=== PATIENT | male | born 1955 | race Caucasian/White ===

== ENCOUNTER 2020-11-20 11:46 | Outpatient (CLI) | payer MEDICARE, SELFPAY ==
--- NOTE | 2020-11-20 12:48 | ECG_ITS ---
Measurements Intervals [place] Rate: 86 P: 51 MO: 193 QRS: -21 QRSD: 102 T: 6 QT: 374 QTc: 449 Interpretive Statements SINUS RHYTHM DELAYED PRECORDIAL R/S TRANSITION BORDERLINE T WAVE ABNORMALITY- INFERIOR LEADS BASELINE ARTIFACT- I, II, AVR, AVL, AVF BORDERLINE ECG Electronically Signed On 11-20-2020 13:05:28 CDT by Rashi Whitfield D.O.
[2020-11-20 13:20] LABS: Anion Gap 7 mmol/L (8-16); Blood Urea Nitrogen 18 mg/dL (9-20); Calcium 9.4 mg/dL (8.4-10.2); Carbon Dioxide 29 mmol/L (22-30); Chloride 102 mmol/L (98-107); Estimated Glomerular Filt Rate > 60; Glucose 98 mg/dL (65-110); Potassium 3.7 mmol/L (3.4-5.0); Sodium 138 mmol/L (137-145)
== END 2020-11-20 11:47 | disposition home or self-care (01) ==
LOC: ANHSURGERY 11:52
PROVIDERS: Anesthesiology; PCP Internal Medicine; Visit Provider Orthopaedic Surgery
DX: Z01.818 Encounter for other preprocedural examination (principal); I10 Essential (primary) hypertension; Z79.899 Other long term (current) drug therapy
CPT/HCPCS: 36415; 80048; 93005

== ENCOUNTER 2020-12-04 01:46 | Day surgery (SDC) | payer MEDICARE, SELFPAY ==
[2020-11-20 12:15] VITALS: BP 114/76; PULSE 100; RESP 20; TEMP 36.6; O2SAT 99; BMI 42.0
--- NOTE | 2020-12-02 17:21 | PM.IMHP ---
H&P: HPI History of Present Illness Date/Time: 12/02/20 17:21 Chief Complaint: Right foot deformity and pain Narrative: 65-year-old gentleman with cavovarus foot deformity bilaterally, right greater than left. Pain with daily activity and weight-bearing. Unrelieved with custom inserts and ankle bracing. Presents for operative treatment. Review of Systems Constitutional: Constitutional: Denies fever(s) Eyes: Eyes: Denies blurry vision ENT: Reports Normal hearing present Cardiovascular: Cardiovascular: Denies chest pain and Denies dyspnea Respiratory: Respiratory: Denies dyspnea and Denies wheezing Gastrointestinal: Gastrointestinal: Denies abdominal pain Genitourinary: Genitourinary: Denies urinary urgency Musculoskeletal: Musculoskeletal: Reports as per HPI and Reports numbness ( Both feet) Integumentary/Breasts: Skin/Breast: Denies changing lesions and Denies sores Neurologic: Reports Normal hearing present, Denies behavioral changes, Denies confusion, Reports numbness ( bilateral feet, lateral ankle) and Denies convulsions Psychiatric: Psychiatric: Denies behavioral changes, Denies confusion and Denies hallucinations Endocrine: Endocrine: Denies heat intolerance Hematologic/Lymphatic: Hematologic/Lymphatic: Denies easy bleeding Allergic/Immunologic: Allergic/Immunologic: Denies wheezing PMFSH Past Medical History Medical History Acquired cavovarus deformity of both feet Back pain Bilateral swelling of feet and ankles Constipation Cough Dry skin Foot pain, right Hoarseness Insomnia Lack or loss of sexual desire Leg pain Redness SOB (shortness of breath) Swelling Weight gain Family History Family History Other Cerebrovascular accident Family history of arthritis Hypertension Social History Social History Smoking status: Former smoker Tobacco type: cigarettes Additional smoking assessment comments: STATES SMOKED 3/4PK/DAY/AGE 17 QUIT 2007 Alcohol intake: current Drinks per week: 10 Substance use: never Substance use type: does not use Spiritual care concerns: No Meds Home Medications and Allergies Home Medications Medication Instructions Recorded Confirmed Type amlodipine 5 mg tablet 5 mg PO QAM 09/22/20 11/20/20 History atorvastatin 20 mg tablet 20 mg PO HS 09/22/20 11/20/20 History clopidogrel 75 mg tablet 75 mg PO DAILY 09/22/20 11/20/20 History furosemide 40 mg tablet 40 mg PO QAM 09/22/20 11/20/20 History isosorbide mononitrate 60 mg 60 mg PO QAM 09/22/20 11/20/20 History tablet,extended release 24 hr levothyroxine 75 mcg capsule 75 mcg PO QAM 09/22/20 11/20/20 History losartan 100 mg tablet 100 mg PO QAM 09/22/20 11/20/20 History coenzyme Q10 100 mg PO BID 11/20/20 11/20/20 History Allergies Allergy/AdvReac Type Severity Reaction Status Date / Time ticagrelor Allergy Intermediate Itching Verified 11/20/20 12:09 latex AdvReac SKIN Verified 11/20/20 12:41 IRRITATION Exam Const: General: healthy appearing; No in distress or confusion Orientation/consciousness: oriented to person, oriented to place, oriented to time and No confusion HENMT: Head: normal to inspection, normocephalic and atraumatic Eyes: Conjunctivae: conjunctivae normal Sclera: sclerae normal Neck: Neck: supple and nontender Resp: Effort & Inspection: normal respiratory effort and no audible wheezes Cardio: Rate: regular rate Rhythm: regular rhythm Skin: General skin exam: no rashes or lesions noted Neuro: General: oriented to person, oriented to place, oriented to time and No confusion Extrem: Right upper extremity: normal to inspection Left upper extremity: normal to inspection Right lower extremity: normal capillary refill, ankle Details: normal to inspection and normal ROM (Dorsiflexion -5 , pl
--- NOTE | 2020-12-03 13:51 | WPDANESEPPF ---
Anes - Initial Pre Proc Eval Procedure: Operation Date: 12/04/20 10:00 Proposed Procedures p Right Calcaneal Osteotomy, Metatarsal Osteotomy, Peroneal Tenodesis, Plantar Fascia Release, Lateral Ankle Ligament Reconstruction - Henrry Delacruz MD Date/Time: 12/03/20 13:51 Surgeon: Henrry Delacruz MD Pre Op Diagnosis: cavovarus right foot deformity Patient Data Age: 65 Gender: M Height: 1.85 m Weight: 144.5 kg Last Vital Signs Temp 36.6 C 11/20/20 12:15 Pulse 100 11/20/20 12:15 Resp 20 11/20/20 12:15 BP 114/76 11/20/20 12:15 Pulse Ox 99 11/20/20 12:15 Allergies Allergy/AdvReac Type Severity Reaction Status Date / Time ticagrelor Allergy Intermediate Itching Verified 12/04/20 08:23 latex AdvReac SKIN Verified 12/04/20 08:23 IRRITATION Home Medications Medication Instructions Recorded Confirmed Type amlodipine 5 mg tablet 5 mg PO [facility] 09/22/20 11/20/20 History atorvastatin 20 mg tablet 20 mg PO HS 09/22/20 11/20/20 History clopidogrel 75 mg tablet 75 mg PO DAILY 09/22/20 11/20/20 History furosemide 40 mg tablet 40 mg PO [facility] 09/22/20 11/20/20 History isosorbide mononitrate 60 mg 60 mg PO [facility] 09/22/20 11/20/20 History tablet,extended release 24 hr levothyroxine 75 mcg capsule 75 mcg PO [facility] 09/22/20 11/20/20 History losartan 100 mg tablet 100 mg PO [facility] 09/22/20 11/20/20 History coenzyme Q10 100 mg PO BID 11/20/20 11/20/20 History ECG: Date of Service: 11/20/20 Procedure(s): CA 12 lead EKG Accession Number(s): [id number] cc: ~ Measurements Intervals [place] Rate: 86 P: 51 [place]: 193 QRS: -21 QRSD: 102 T: 6 QT: 374 QTc: 449 Interpretive Statements SINUS RHYTHM DELAYED PRECORDIAL R/S TRANSITION BORDERLINE T WAVE ABNORMALITY- INFERIOR LEADS BASELINE ARTIFACT- I, II, AVR, AVL, AVF BORDERLINE ECG Electronically Signed On 11-20-2020 13:05:28 CDT by Rashi Whitfield D.O. Patient hx anesthesia problems: none Family hx anesthesia problems: none PMFSH Past Medical History Medical History (Updated 12/03/20 @ 13:53 by Gentry Radford MD) Acquired cavovarus deformity of both feet Arthritis Back pain Bilateral swelling of feet and ankles CAD (coronary artery disease) Constipation Cough Dry skin Foot pain, right Hoarseness HTN (hypertension) Hx of myocardial infarction Hypercholesterolemia Hypothyroidism Insomnia Lack or loss of sexual desire Leg pain Morbid obesity with BMI of 40.0-44.9, adult BRAIN on CPAP Redness SOB (shortness of breath) Swelling Weight gain Surgical History Surgical History (Updated 12/03/20 @ 13:53 by Gentry Radford MD) History of coronary artery stent placement Family History Family History Other Cerebrovascular accident Family history of arthritis Hypertension Social History Social History Smoking status: Light tobacco smoker Tobacco type: cigarettes Additional smoking assessment comments: STATES SMOKED 3/4PK/DAY/AGE 17 QUIT 2007 Alcohol intake: current Drinks per week: 10 Substance use: never Substance use type: does not use Living arrangements: with family Spiritual care concerns: No Anes - Eval Final PreProcedure Day of Procedure 12/03/20 13:51 Patient weight: obese Heart: regular rate and rhythm Lungs: clear to auscultation and normal air movement Airway: Mallampati scale class II Neurological: alert and oriented Last oral intake: >/= 8 hours ASA classification: III Emergent: no Anesthetic plan: proceed Anesthesia type and monitoring: general LMA and ETT Informed Consent: The patient's anesthe
[2020-12-04] VITALS (9 sets, daily range): BP systolic 122–149; BP diastolic 71–92; PULSE 62–75; RESP 15–20; TEMP 36.2–36.9; O2SAT 90–97
--- NOTE | ~2020-12-04 | XR_ITS ---
EXAMINATION: XR surgery orthopedic EXAM DATE: 12/04/2020 13:06 INDICATION: Right Calcaneal/1st Metatarsal Osteotomy TECHNIQUE: Fluoroscopy used during right foot orthopedic surgery performed by Dr. Henrry Delacruz MD. Radiologist was not present for the imaging or procedure. Total fluoroscopic time of 19 seconds . The DAP for this procedure was 0.024 mGym2. A total of 5 images sent to PACS from the exam. FINDINGS: Images demonstrate calcaneal osteotomy with 2 lag screws bridging the osteotomy site. Ther e is also 1st metatarsal osteotomy with staple-like orthopedic fixation device bridging this site. So me skin johann over the lateral aspect of the ankle. There is chronic appearing Ny fracture. Ther e may also be old lateral malleolar fracture. Correlate with procedure note. IMPRESSION: Fluoroscopy used during right foot surgery. Reviewed, dictated and finalized at location A.
--- NOTE | 2020-12-04 06:51 | WPDHPUPDATE1 ---
History and Physical Update Update Date/Time: 12/04/20 06:51 History and Physical has been reviewed, including an updated exam of the patient. There are NO changes in the patient's condition. Risks, benefits, and alternatives have been discussed and questions answered. Patient agrees to proceed with procedure.
[2020-12-04] MEDS: ACETAMINOPHEN 500 MG TABLET 1000 MG PO (08:18)
[2020-12-04] MEDS: LACTATED RINGERS 1,000 ML 30 ML IV CONT ×2 (08:20→13:21)
[2020-12-04] MEDS: KETOROLAC 15 MG/ML VIAL (*BKC) IV PUSH (08:26)
--- NOTE | 2020-12-04 08:47 | SUR.PREOP ---
PT HAS PREVIOUSLY RECIEVED INCENTIVE TEACHING, DENIES NEED FOR CRUTCH TRAINING.
--- NOTE | 2020-12-04 10:22 | WPDANESPNB ---
Anes - Peripheral Nerve Block Date/Time: 12/04/20 10:22 I have discussed with the patient/family/POA the placement of a peripheral nerve block for post-operative pain management, including associated risks, benefits, complications, and side effects. Alternative methods of post-operative analgesia were detailed. Questions were solicited and answers provided to the satisfaction of the patient/family/POA. Time-Out: A pre-procedural Time-Out was completed immediately before starting the procedure and confirmed: Patient Identification, Site, Procedure, Patient Position and the Availability of Requisite Equipment. Clinical Indications: Acute post-operative pain management requested by the operative surgeon. Nerve Block Insertion Note Anes-nerve block: posterior fossa sciatic (20cc) right and adductor canal (10cc) right Patient position: supine Skin prep: chlorhexidine Needle: 22 gauge, stimulating, insulated echogenic needle. Needle length: 80 mm Technique: ultrasound (in plane) Injectate: bupivacaine 0.25% with epi 5 mcg/ml Observations: tolerated well Complications: none Procedure start time:: 1010 Procedure end time:: 1020
[2020-12-04] MEDS: ceFAZolin 3 GM/D5W 100 ML 100 ML IVPB (10:28)
--- NOTE | 2020-12-04 13:33 | W.PM.PROC2 ---
Procedure Note - Detailed Date of Procedure 12/04/20 Pre-op Diagnosis cavovarus right foot deformity Post-op Diagnosis same Procedure Performed Right calcaneal osteotomy, 1st metatarsal osteotomy, peroneal tenodesis, lateral ligament reconstruction, secondary, plantar fascia release. 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 Stress fractures noted in the metatarsals. Pain with weight-bearing. Unrelieved with orthotics and bracing. Presents now for operative treatment. Description of Procedure Patient identified in the preoperative holding area. Operative extremity marked. Patient received intravenous antibiotics. Informed consent given and patient was brought to the operating room positioned supine on the operative room table. Preoperative regional nerve block performed by the anesthesia team followed by general anesthesia. Time-out was performed confirming the patient, site of the surgery and the plan. Right lower extremity was then prepped and draped usual sterile surgical fashion using a ChloraPrep skin solution. Foot and ankle exsanguinated and a thigh tourniquet inflated to 250 mmHg. We addressed the calcaneus 1st. Oblique incision made over the lateral aspect of the calcaneal tuberosity. The sural nerve was identified and retracted. Subperiosteal dissection from the lateral side of the calcaneus. Fluoroscopy used to help guide the osteotomy. Sagittal saw used to make an osteotomy from lateral to medial. This was completed with the osteotome. Lateral closing wedge was then taken approximately 8 mm in width. The osteotomy was closed down and fixation was achieved with 6.7 mm cannulated screws x2. Image intensification confirmed placement of the hardware and alignment of the calcaneus. Wound thoroughly irrigated antibiotic solution to the periosteum was closed with 2 Vicryl interrupted suture. Incision made in the peroneal tendon sheath and the peroneal tendons were identified. There is extensive hypertrophy and scarring of the peroneus longus. A tenodesis was performed of the longus to the brevis tendon using 2. FiberWire suture. The peroneus longus was then released distal to the tenodesis. Wounds thoroughly irrigated antibiotic solution and the subcutaneous tissue closed with 3 Monocryl interrupted suture. Skin approximated with johann. Oblique incision from the distal fibula over the sinus tarsi with a 15 blade knife. Hemostasis controlled electrocautery. Fascia released over the sinus tarsi. Degenerative changes of the lateral ankle ligaments noted. Reconstruction performed using the Arthrex internal brace. 4.75 mm drill placed and the lateral talar neck. Swivel lock anchor with the suture tape placed. 3.5 mm drill hole placed at the anterior distal fibula and with the ankle mortise reduced the suture tape was repaired to the distal fibula with the 3.5 mm swivel lock anchor. From there the suture tape was taken distally to the calcaneus and with the ankle mortise in neutral the suture tape was secured to the calcaneus with a 4.75 mm swivel lock anchor. Image intensification confirmed well-maintained alignment of the ankle mortise and placement of the suture drill holes. Wound thoroughly irrigated antibiotic solution the remaining anterior talofibular and calcaneal fibular ligaments were repaired with 0 Vicryl interrupted suture. Fascia repaired with 2 Vicryl interrupted suture and the skin repaired with 3-0 Monocryl subcuticular interrupted suture and johann. Medial aspect of the foot addressed. Oblique incision made over the medial aspect of the plantar fascia. Neurovascular elements were retracted. The medial aspect of the fascia was identified and a complete release of the plantar fascia was then performed from medial to lateral. Wound thoroughly irrigated subcutaneous tissue closed with 3 000 Monocryl Inter
== END 2020-12-04 15:37 | disposition home or self-care (01) ==
PROVIDERS: PCP Internal Medicine; Visit Provider Orthopaedic Surgery
PROC: (CPT 28750; principal; 2020-12-04 10:00)
DX: Q66.11 Congenital talipes calcaneovarus, right foot (principal); Q66.12 Congenital talipes calcaneovarus, left foot; I25.10 Atherosclerotic heart disease of native coronary artery without angina pectoris; E66.01 Morbid (severe) obesity due to excess calories; Z68.41 Body mass index [BMI] 40.0-44.9, adult; Z79.899 Other long term (current) drug therapy; G89.18 Other acute postprocedural pain
CPT/HCPCS: 28306; 28300; 28008; 27659; 27698; 64445; 36415; 80048; 87086; 93005; A9270; J0690; J1100; J1885; J2250; J2370; J2405; J2704; J2710; J3010; J7120

== ENCOUNTER 2020-12-31 12:42 | Emergency (ER) | payer MEDICARE, SELFPAY ==
[2020-12-31] VITALS (13 sets, daily range): BP systolic 126–157; BP diastolic 84–91; PULSE 79–91; RESP 13–22; TEMP 37; O2SAT 94–97
--- NOTE | ~2020-12-31 | XR_ITS ---
EXAMINATION: XR chest 2V EXAM DATE: 12/31/2020 14:12 INDICATION: Shortness of breath, lower extremity swelling. TECHNIQUE: Frontal and lateral projections of the chest obtained and reviewed. There is no prior corbin dy for comparison. FINDINGS: Right basilar granuloma. The lungs are otherwise clear. There are no pleural effusions. The cardiomediastinal silhouette is within normal limits accounting for AP technique. There is no pn eumothorax suspected. The bones and soft tissues are unremarkable. IMPRESSION: No acute cardiopulmonary findings. Reviewed, dictated and finalized at location B.
--- NOTE | ~2020-12-31 | US_ITS ---
EXAMINATION: US venous doppler [facility] EXAM DATE: 12/31/2020 14:44 INDICATION: Left leg swelling. TECHNIQUE: Multiple grayscale, color flow and Doppler images of the left lower extremity deep venous system were obtained and reviewed. There is no prior study for comparison. FINDINGS: The left common femoral, femoral and profunda veins demonstrate normal color flow, respirat ory variation, augmentation and compressibility. Compressibility, color flow confirmed within the le ft popliteal, posterior tibial, peroneal, and greater saphenous veins. IMPRESSION: 1. No left lower extremity deep venous thrombosis. Reviewed, dictated and finalized at location B.
--- NOTE | 2020-12-31 13:13 | PC.NURSE ---
pt reports that he is supposed to be taking 1 1/2 water pills a day and has only been taking 1 pill a day cause he heard they can mess up his kidneys. pt presents with 4+ pitting edema noted to left lower leg. pt c/o increased sob with exertion.
--- NOTE | 2020-12-31 13:48 | ECG_ITS ---
Measurements Intervals [place] Rate: 84 P: 64 MI: 188 QRS: -8 QRSD: 107 T: 31 QT: 375 QTc: 444 Interpretive Statements SINUS RHYTHM NORMAL ECG Electronically Signed On 12-31-2020 14:17:47 CDT by Rashi Whitfield D.O.
[2020-12-31 14:00] LABS: Basophils Absolute Auto 0.1 K/mm3 (0.0-0.1); Basophils Percent Auto 1.2 % (0.2-1.2); Eosinophils Absolute Auto 0.3 K/mm3 (0-0.3); Eosinophils Percent Auto 5.1 % (0-4.4); Hematocrit 36.9 % (42.0-52.0); Hemoglobin 12.5 g/dL (14.0-18.0); Immature Granulocyte Absolute 0.02 K/mm3 (0.00-0.031); Immature Granulocyte Percent A 0.3 % (0-0.5); Lymphocytes Absolute Auto 1.38 K/mm3 (0.9-3.2); Lymphocytes Percent Auto 20.5 % (18.3-44.2); Mean Corpuscular HGB Conc 33.9 g/dl (32-36); Mean Corpuscular Hemoglobin 33.5 pg (26-34); Mean Corpuscular Volume 98.9 fl (80-100); Mean Platelet Volume 9.6 fl (7.4-10.4); Monocytes Absolute Auto 0.5 K/mm3 (0.1-0.6); Monocytes Percent Auto 7.9 % (2.6-8.5); Neutrophils Absolute Auto 4.4 K/mm3 (1.3-6.7); Platelet Count Result 245 k/mm3 (150-375); Red Blood Count 3.73 M/mm3 (4.6-6.20); White Blood Count 6.7 K/mm3 (4.5-10.0)
[2020-12-31 14:22] LABS: Anion Gap 10 mmol/L (8-16); Blood Urea Nitrogen 19 mg/dL (9-20); Calcium 9.2 mg/dL (8.4-10.2); Carbon Dioxide 28 mmol/L (22-30); Chloride 101 mmol/L (98-107); Estimated CRCL calculation 109 ml/min; Estimated Glomerular Filt Rate > 60; Glucose 105 mg/dL (65-110); Sodium 139 mmol/L (137-145)
[2020-12-31 14:30] LABS: NT Pro B Type Natriuretic Pept 68 pg/mL (5-100); Troponin I < 0.012 ng/mL (0.000-0.034)
[2020-12-31 14:33] LABS: INR 0.9
--- NOTE | 2020-12-31 16:01 | ED.EXTPRO ---
HPI - Extremity Problem General Chief complaint: Extremity Problem,Nontraumatic Stated complaint: leg/foot swelling Time Seen by Provider: 12/31/20 14:06 Source: patient and RN notes reviewed Mode of arrival: ambulatory Limitations: no limitations History of Present Illness HPI Narrative: This is a 65 year old male with history of morbid obesity, Hypertension who presents for evaluation left foot and leg swelling. Patient reports history of intermittent bilateral leg swelling and he takes Lasix daily. He noticed yesterday his left foot and leg appeared more swollen than usual. He states he had a right foot reconstruction perform [address] Delacruz and he had a cast placed yesterday. His clinic note states patient had bilateral leg swelling. Patient states today he took 2 dose of his Lasix and his swelling has improved. He has been sleeping in a recliner over the past few weeks, but he states he has been keeping his legs elevated. He denies chest pain, dizziness or shortness of breath. He admits to significant weight gain for months. Related Data Home Medications Medication Instructions Recorded Confirmed amlodipine 5 mg tablet 5 mg PO QAM 09/22/20 12/30/20 atorvastatin 20 mg tablet 20 mg PO HS 09/22/20 12/30/20 clopidogrel 75 mg tablet 75 mg PO DAILY 09/22/20 12/30/20 furosemide 40 mg tablet 60 mg PO QAM 09/22/20 12/30/20 isosorbide mononitrate 60 mg 60 mg PO QAM 09/22/20 12/30/20 tablet,extended release 24 hr levothyroxine 75 mcg capsule 75 mcg PO QAM 09/22/20 12/30/20 losartan 100 mg tablet 100 mg PO QAM 09/22/20 12/30/20 coenzyme Q10 100 mg PO BID 11/20/20 12/30/20 Allergies Allergy/AdvReac Type Severity Reaction Status Date / Time ticagrelor Allergy Intermediate Itching Verified 12/31/20 13:46 latex AdvReac SKIN Verified 12/31/20 13:46 IRRITATION Review of Systems Review of Systems: All systems reviewed & are unremarkable except as noted in HPI and below PMFSH Past Medical History Medical History Acquired cavovarus deformity of both feet Arthritis Back pain Bilateral swelling of feet and ankles CAD (coronary artery disease) Constipation Cough Dry skin Encounter for postoperative care Foot pain, right Hoarseness HTN (hypertension) Hx of myocardial infarction Hypercholesterolemia Hypothyroidism Insomnia Lack or loss of sexual desire Leg pain Morbid obesity with BMI of 40.0-44.9, adult BRAIN on CPAP Redness SOB (shortness of breath) Swelling Weight gain Surgical History Surgical History History of coronary artery stent placement Family History Family History Other Cerebrovascular accident Family history of arthritis Hypertension Social History Social History Tobacco type: cigarettes Additional smoking assessment comments: STATES SMOKED 3/4PK/DAY/AGE 17 QUIT 2007 Alcohol intake: current Drinks per week: 10 Substance use: never Substance use type: does not use Spiritual care concerns: No Exam Const: General: no acute distress and alert Orientation/consciousness: patient oriented x3 Eyes: Pupils: Equal, round and reactive pupils present EOM: EOMs intact bilaterally Chest: Chest palpation & inspection: normal inspection of the chest Resp: Effort & Inspection: normal respiratory effort and no retractions Auscultation: clear to auscultation bilaterally Cardio: Rate: regular rate Rhythm: regular rhythm Heart sounds: no murmurs GI: GI Palp: Yes Soft to palpation, No Tenderness to palpation present (GI) and No Guarding due to palpation present (GI) Auscultation: normal bowel sounds Neuro: General: patient oriented x3, moves all extremities and CN's II-XI intact bilaterally Extrem: General: edema bilateral (3+ pitting, left pedal
== END 2020-12-31 17:15 | disposition home or self-care (01) ==
PROVIDERS: Emergency Provider General Practice; PCP Internal Medicine
DX: R60.0 Localized edema (principal); I25.10 Atherosclerotic heart disease of native coronary artery without angina pectoris; I10 Essential (primary) hypertension; I25.2 Old myocardial infarction; E78.00 Pure hypercholesterolemia, unspecified; E03.9 Hypothyroidism, unspecified; E66.01 Morbid (severe) obesity due to excess calories; Z68.41 Body mass index [BMI] 40.0-44.9, adult; G47.33 Obstructive sleep apnea (adult) (pediatric); M19.90 Unspecified osteoarthritis, unspecified site; Z95.5 Presence of coronary angioplasty implant and graft; Z87.891 Personal history of nicotine dependence
CPT/HCPCS: 36415; 71046; 80048; 83880; 84484; 85025; 85610; 85730; 93005; 93971; 99284

== ENCOUNTER 2021-04-06 01:33 | Day surgery (SDC) | payer MEDICARE, SELFPAY ==
--- NOTE | 2021-03-27 10:46 | PC.NURSE ---
Report to the Outpatient Waiting Room, entrance under the green pavilion located off [facility], at time _0600 on date _04/06/21 . OR Time: __729 . - You and your visitor will be asked a series of questions to screen for COVID 19 for your protection. - A mask is required within the hospital. - Only one visitor is allowed at this time. Patient visitors will be guided where to wait when not with patient. Preoperative COVID Testing Requirements: No COVID Test needed if: (proof is required; if not received patient will have Rapid Test prior to entry) - Patient has received COVID Vaccine at least 14 days prior to procedure date or - Patient has positive COVID test result within last 90 days of surgery date. COVID Test needed if above criteria is not met If not COVID vaccinated a COVID test must be conducted within 72 hours of surgery and patient is asked to isolate self from time of testing until procedure. You will go to the [facility] for your COVID testing. The [facility] site is located at the corner of [address] [facility]. You will only be called if COVID results are positive and your surgeon may reschedule your elective surgery date. Patients may have clear liquids (water, carbonated beverages, clear teas, apple juice) until 3 hours prior to surgery with a maximum of 20 ounces. - No food from midnight until time of surgery - Infants may have breast milk until 4 hours before surgery, infant formula 6 hours prior to surgery. - Children will be allowed to drink immediately following surgery. If applicable, please bring a bottle or sippy cup to assist with drinking. Juice, water, soda, and popsicles are readily available. For infants on formula, please bring formula the day of surgery. Pacifiers are allowed. Take the following medications with a SIP of water the morning of surgery: __AMLODIPINE,ISISORBIDE,LEVOTHYROXINE Medications to discontinue per physician __ASPIRIN AND PLAVIX PER DR BRUNO AND ALL VITAMINS AND SUPPLEMENTS 3 DAYS PRE OP Date to take last dose____04/02/21 Please no make-up, nail macedonian, hairspray, perfume, deodorant, or body powder the day of surgery. No jewelry (including any body piercings) or valuables the day of surgery, leave them at home. Please take a shower or bath the night before, or the morning of, surgery with an antibacterial soap. Wear comfortable, loose fitting clothing. Children are encouraged to wear pajamas. - Jewelry must be removed prior to entering the operating room. Rings and piercings that are not removed may be cut off. - The hospital will not accept responsibility for valuables. - Please leave all valuables, including medications, at home the day of surgery. If you are going home after surgery, a licensed pile driver engineer must drive you home. - NO public transportation without another adult. - We recommend that an adult stay with you for 24 hours following discharge. - We also recommend that you do not drive, make important decision, drink alcoholic beverages, or take any drugs that were not prescribed by your health care provider for at least 24 hours after your discharge time. For Pediatric surgeries, we recommend two adults accompany the child home (only one inside the building at this time). Follow any additional instructions given to you from your surgeon. VERBAL instructions given to ___PATIENT AND SPOUSE and asked if any additional questions and then verbalized understanding. Patient advised to call surgeon office or pre surgery nurse liaison [phone] if any additional questions.
[2021-03-27 11:09] VITALS: BP 122/84; PULSE 76; RESP 16; TEMP 36.7; O2SAT 97
[2021-03-27 11:17] VITALS: BMI 43.2
--- NOTE | 2021-03-31 13:02 | PM.IMHP ---
H&P: HPI History of Present Illness Date/Time: 03/31/21 13:02 Chief Complaint: Left foot pain and deformity Narrative: 65-year-old gentleman with bilateral cavovarus foot deformity. Four months status post reconstruction on the right side. Increased pain and deformity on the left side secondary to full pressure after surgery for the right foot. Unrelieved with brace and fracture boot immobilization. Patient has done well on the right side And presents for same on the left. Review of Systems Constitutional: Constitutional: Denies fever(s) Eyes: Eyes: Denies blurry vision ENT: Reports Normal hearing present Cardiovascular: Cardiovascular: Denies chest pain and Denies dyspnea Respiratory: Respiratory: Denies dyspnea and Denies wheezing Gastrointestinal: Gastrointestinal: Denies abdominal pain Genitourinary: Genitourinary: Denies urinary urgency Musculoskeletal: Musculoskeletal: Reports as per HPI and Reports numbness ( Both feet) Integumentary/Breasts: Skin/Breast: Denies changing lesions and Denies sores Neurologic: Reports Normal hearing present, Denies behavioral changes, Denies confusion, Reports numbness ( bilateral feet, lateral ankle) and Denies convulsions Psychiatric: Psychiatric: Denies behavioral changes, Denies confusion and Denies hallucinations Endocrine: Endocrine: Denies heat intolerance Hematologic/Lymphatic: Hematologic/Lymphatic: Denies easy bleeding Allergic/Immunologic: Allergic/Immunologic: Denies wheezing PMF Past Medical History Medical History (Updated 03/31/21 @ 13:05 by Henrry Delacruz MD) Acquired cavovarus deformity of both feet Acquired cavovarus deformity of left foot Acquired left hindfoot varus Arthritis Back pain Bilateral swelling of feet and ankles CAD (coronary artery disease) Constipation Cough Dry skin Edema of lower extremity Encounter for postoperative care Foot pain, right Hoarseness HTN (hypertension) Hx of myocardial infarction Hypercholesterolemia Hypothyroidism Insomnia Lack or loss of sexual desire Leg pain Morbid obesity with BMI of 40.0-44.9, adult BRAIN on CPAP Peroneal tendinitis of left lower leg Posterior tibial tendinitis of left lower extremity Redness SOB (shortness of breath) Swelling Weight gain Surgical History Surgical History History of coronary artery stent placement Family History Family History Other Cerebrovascular accident Family history of arthritis Hypertension Social History Social History Smoking packs per day: 0.5 Smoking cigarettes per day: 10.0 Years smoked: 25 Smoking pack-years: 12.50 Smoking status: Former smoker Tobacco type: cigarettes Smoking end date: 04/11/07 Additional smoking assessment comments: STATES SMOKED 3/4PK/DAY/AGE 17 QUIT 2007 Alcohol intake: current Drinks per week: 6 Substance use: never Substance use type: does not use Spiritual care concerns: No Meds Home Medications and Allergies Home Medications Medication Instructions Recorded Confirmed Type amlodipine 5 mg tablet 5 mg PO QAM 09/22/20 03/27/21 History atorvastatin 20 mg tablet 20 mg PO HS 09/22/20 03/27/21 History clopidogrel 75 mg tablet 75 mg PO DAILY 09/22/20 03/27/21 History isosorbide mononitrate 60 mg 60 mg PO QA 09/22/20 03/27/21 History tablet,extended release 24 hr levothyroxine 75 mcg capsule 100 mcg PO QAM 09/22/20 03/27/21 History losartan 100 mg tablet 100 mg PO QAM 09/22/20 03/27/21 History coenzyme Q10 100 mg PO BID 11/20/20 03/27/21 History aspirin [Adult Low Dose Aspirin] 81 mg PO HS 03/27/21 03/27/21 History furosemide 40 mg PO DAILY 03/27/21 03/27/21 History omega-3 fatty acids [Fish Oil] 1,000 mg PO DAILY 03/27/21 03/27/21 History zinc 50 mg PO DAILY 03/27/21 03/27/21 History Allergies Allergy/AdvRea
[2021-04-06] VITALS (7 sets, daily range): BP systolic 131–154; BP diastolic 78–94; PULSE 68–80; RESP 12–16; TEMP 36.2–36.3; O2SAT 97–100
--- NOTE | ~2021-04-06 | XR_ITS ---
EXAMINATION: XR surgery orthopedic EXAM DATE: 04/06/2021 09:27 INDICATION: Lt Foot/Ankle Corrective Surg . TECHNIQUE: Fluoroscopy used during left foot surgery performed by Dr. Henrry Delacruz MD. Radiolo gist was not present for the imaging or procedure. Total fluoroscopic time of 12 seconds. The DAP f or this procedure was 0.016 mGym2. A total of 6 images sent to PACS from the exam. FINDINGS: Images demonstrate calcaneal osteotomy, surgical fixation with lag screws and staple-like orthopedic device. Also 1st metatarsal base osteotomy and orthopedic staple-like device. Some johann over the ankle laterally. Correlate with procedure note. IMPRESSION: Fluoroscopy used during left foot surgery. Reviewed, dictated and finalized at location B. TACO
[2021-04-06] MEDS: LACTATED RINGERS 1,000 ML 30 ML IV CONT (06:45)
[2021-04-06] MEDS: ACETAMINOPHEN 500 MG TABLET 1000 MG PO (06:52)
[2021-04-06] MEDS: KETOROLAC 15 MG/ML VIAL (*BKC) IV PUSH (06:58)
--- NOTE | 2021-04-06 07:02 | WPDHPUPDATE1 ---
History and Physical Update Update Date/Time: 04/06/21 07:02 History and Physical has been reviewed, including an updated exam of the patient. There are NO changes in the patient's condition. Risks, benefits, and alternatives have been discussed and questions answered. Patient agrees to proceed with procedure.
--- NOTE | 2021-04-06 07:05 | WPDANESEPPF ---
Anes - Initial Pre Proc Eval Procedure: Operation Date: 04/06/21 07:30 Proposed Procedures p Left Calcaneal First Metatarsal Osteotomies, Peroneal and Tibial Tenodesis, Plantar Fascia Release, - Henrry Delacruz MD s Possible Lateral Ankle Ligament Reconstruction - Henrry Delacruz MD Date/Time: 04/06/21 07:05 Surgeon: Henrry Delacruz MD Pre Op Diagnosis: left cavovarus foot deformity Patient Data Age: 65 Gender: M Height: 1.84 m Weight: 146.6 kg Last Vital Signs Temp 36.7 C 03/27/21 11:09 Pulse 76 03/27/21 11:09 Resp 16 03/27/21 11:09 BP 122/84 03/27/21 11:09 Pulse Ox 97 03/27/21 11:09 Allergies Allergy/AdvReac Type Severity Reaction Status Date / Time ticagrelor Allergy Intermediate Itching/YENNIFER Verified 03/27/21 10:21 H latex AdvReac SKIN Verified 03/27/21 10:20 IRRITATION Home Medications Medication Instructions Recorded Confirmed Type amlodipine 5 mg tablet 5 mg PO QAM 09/22/20 03/27/21 History atorvastatin 20 mg tablet 20 mg PO HS 09/22/20 03/27/21 History clopidogrel 75 mg tablet 75 mg PO DAILY 09/22/20 03/27/21 History isosorbide mononitrate 60 mg 60 mg PO QAM 09/22/20 03/27/21 History tablet,extended release 24 hr levothyroxine 75 mcg capsule 100 mcg PO QAM 09/22/20 03/27/21 History losartan 100 mg tablet 100 mg PO QAM 09/22/20 03/27/21 History coenzyme Q10 100 mg PO BID 11/20/20 03/27/21 History aspirin [Adult Low Dose Aspirin] 81 mg PO HS 03/27/21 03/27/21 History furosemide 40 mg PO DAILY 03/27/21 03/27/21 History omega-3 fatty acids [Fish Oil] 1,000 mg PO DAILY 03/27/21 03/27/21 History zinc 50 mg PO DAILY 03/27/21 03/27/21 History Patient hx anesthesia problems: none Family hx anesthesia problems: none Results Review: All pre-operative results and documents have been reviewed as part of the pre-operative evaluation. [facility] Past Medical History Medical History Acquired cavovarus deformity of both feet Acquired cavovarus deformity of left foot Acquired left hindfoot varus Arthritis Back pain Bilateral swelling of feet and ankles CAD (coronary artery disease) Constipation Cough Dry skin Edema of lower extremity Encounter for postoperative care Foot pain, right Hoarseness HTN (hypertension) Hx of myocardial infarction Hypercholesterolemia Hypothyroidism Insomnia Lack or loss of sexual desire Leg pain Morbid obesity with BMI of 40.0-44.9, adult BRAIN on CPAP Peroneal tendinitis of left lower leg Posterior tibial tendinitis of left lower extremity Redness SOB (shortness of breath) Swelling Weight gain Surgical History Surgical History History of coronary artery stent placement Family History Family History Other Cerebrovascular accident Family history of arthritis Hypertension Social History Social History Smoking packs per day: 0.5 Smoking cigarettes per day: 10.0 Years smoked: 25 Smoking pack-years: 12.50 Smoking status: Former smoker Tobacco type: cigarettes Smoking end date: 04/11/07 Additional smoking assessment comments: STATES SMOKED 3/4PK/DAY/AGE 17 QUIT 2007 Alcohol intake: current Drinks per week: 6 Substance use: never Substance use type: does not use Living arrangements: with family Spiritual care concerns: No Anes - Eval Final PreProcedure Day of Procedure 04/06/21 07:05 Patient weight: morbidly obese Heart: regular rate and rhythm Lungs: decreased breath sounds Airway: Mallampati scale class III Neurological: alert and oriented Last oral intake: >/= 8 hours ASA classification: III Emergent: no Anesthetic plan: proceed Anesthesia type and monitoring: general LMA and standard monitoring Results Review: All pre-operative results and documents have been r
--- NOTE | 2021-04-06 07:18 | WPDANESPNB ---
Anes - Peripheral Nerve Block Date/Time: 04/06/21 07:18 I have discussed with the patient/family/POA the placement of a peripheral nerve block for post-operative pain management, including associated risks, benefits, complications, and side effects. Alternative methods of post-operative analgesia were detailed. Questions were solicited and answers provided to the satisfaction of the patient/family/POA. Time-Out: A pre-procedural Time-Out was completed immediately before starting the procedure and confirmed: Patient Identification, Site, Procedure, Patient Position and the Availability of Requisite Equipment. Clinical Indications: Acute post-operative pain management requested by the operative surgeon. Nerve Block Insertion Note Anes-nerve block: posterior fossa sciatic left and other (Saphenous left) Patient position: supine Skin prep: chlorhexidine Needle: 22 gauge, stimulating, insulated echogenic needle. Needle length: 120 mm Technique: nerve stimulation lost at (mA) Technique comment: mid 2mg fent 100mcg Injectate: bupivacaine 0.5% with epi 5 mcg/ml (20/10ml) and dexamethasone (mg) (4) Observations: tolerated well Complications: none Procedure start time:: 709 Procedure end time:: 716
[2021-04-06] MEDS: ceFAZolin 3 GM/D5W 100 ML 100 ML IVPB (07:28)
--- NOTE | 2021-04-06 08:08 | SUR.PREOP ---
PT PLAN TO USE KNEE SCOOTER POST PROCEDURE WITH PREV SURGERY ON RT FOOT/ANKLE. NO CRUTCH TEACHING NEEDED.
--- NOTE | 2021-04-06 09:58 | W.PM.PROC2 ---
Procedure Note - Detailed Date of Procedure 04/06/21 Pre-op Diagnosis left cavovarus foot deformity Post-op Diagnosis same Procedure Performed Left calcaneal and 1st metatarsal osteotomy, peroneal tenodesis, plantar fascia release, posterior tibial tenolysis. 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 Patient has undergone reconstruction on the right side. He presents now for the left side. Description of Procedure Patient identified in the preoperative holding area. Operative extremity marked. Patient received intravenous antibiotics. Informed consent given and patient was brought to the operating room positioned supine on the operative room table. Preoperative regional nerve block performed by the anesthesia team followed by general anesthesia. Time-out was performed confirming the patient, site of the surgery and the plan. Left lower extremity was then prepped and draped usual sterile surgical fashion using a ChloraPrep skin solution. Foot and ankle exsanguinated and a thigh tourniquet inflated to 250 mmHg. We addressed the calcaneus 1st. Oblique incision made over the lateral aspect of the calcaneal tuberosity. The sural nerve was identified and retracted. Subperiosteal dissection from the lateral side of the calcaneus. Fluoroscopy used to help guide the osteotomy. Sagittal saw used to make an osteotomy from lateral to medial. This was completed with the osteotome. Lateral closing wedge was then taken approximately 8 mm in width. The osteotomy was closed down and fixation was achieved with 6.5 mm cannulated screws x2. Secondary fixation achieved with a Nitinol staple, 18 mm by 18 mm. Image intensification confirmed placement of the hardware and alignment of the calcaneus. Wound thoroughly irrigated antibiotic solution to the periosteum was closed with 2 Vicryl interrupted suture. Incision made in the peroneal tendon sheath and the peroneal tendons were identified. There is extensive hypertrophy and scarring of the peroneus longus. A tenodesis was performed of the longus to the brevis tendon using 2. FiberWire suture. The peroneus longus was then released distal to the tenodesis. Wounds thoroughly irrigated antibiotic solution and the subcutaneous tissue closed with 3 Monocryl interrupted suture. Skin approximated with johann. Medial aspect of the foot addressed. Oblique incision made over the medial aspect of the plantar fascia. Neurovascular elements were retracted. The medial aspect of the fascia was identified and a complete release of the plantar fascia was then performed from medial to lateral. Wound thoroughly irrigated subcutaneous tissue closed with 000 Monocryl interrupted suture and skin repair was johann. Longitudinal incision made at the base of the 1st metatarsal over the dorsum with a 15 blade knife. Hemostasis controlled electrocautery. Neurovascular elements retracted. Base of the 1st metatarsal was exposed and a closing dorsal wedge osteotomy was performed dorsum plantar. Approximately 6 mm of wedge was taken. The osteotomy was closed down and fixation achieved with the Arthrex 13 mm staple. Hemostasis controlled electrocautery. Wounds on the dorsum of the foot were irrigated closed with 3 0 Monocryl interrupted suture for the subcutaneous tissue and johann for the skin. Longitudinal incision then made over the posterior tibial tendon on the medial aspect of the tibia proximal to the ankle with a 15 blade knife. Hemostasis controlled electrocautery. Neuro Georgie neurovascular elements protected. The posterior tibial tendon sheath was then incised in line with skin incision. Posterior tibial tendon identified and released at the tendinous portion. The muscular portion was left in place for a insitu lengthening. Wound thoroughly irrigated and the sheath closed with
== END 2021-04-06 12:10 | disposition home or self-care (01) ==
PROVIDERS: PCP Internal Medicine; Visit Provider Orthopaedic Surgery
PROC: (CPT 28750; principal; 2021-04-06 07:30)
DX: M21.6X2 Other acquired deformities of left foot (principal); M76.72 Peroneal tendinitis, left leg; M76.822 Posterior tibial tendinitis, left leg; M21.172 Varus deformity, not elsewhere classified, left ankle; I25.10 Atherosclerotic heart disease of native coronary artery without angina pectoris; I10 Essential (primary) hypertension; I25.2 Old myocardial infarction; E78.5 Hyperlipidemia, unspecified; E03.9 Hypothyroidism, unspecified; G47.33 Obstructive sleep apnea (adult) (pediatric); E66.01 Morbid (severe) obesity due to excess calories; Z68.41 Body mass index [BMI] 40.0-44.9, adult; Z95.5 Presence of coronary angioplasty implant and graft; Z87.891 Personal history of nicotine dependence; Z79.02 Long term (current) use of antithrombotics/antiplatelets; Z79.82 Long term (current) use of aspirin
CPT/HCPCS: 28306; 28008; 28300; 27680; 27691; A9270; J0690; J1100; J1885; J2250; J2405; J2704; J3010; J7120

== ENCOUNTER → 2022-07-10 07:40 | Outpatient (CLI) | payer MEDICARE, SELFPAY ==
--- NOTE | ~2022-07-10 | MR_ITS ---
EXAMINATION: MR lumbar spine wo con DATE: 07/10/2022 08:29 INDICATION: Chronic low back pain. Bilateral leg and foot numbness. Degenerative disc disease. TECHNIQUE: Magnetic resonance imaging (MRI) of the lumbar spine was performed without intravenous con trast. COMPARISON: Lumbar spine radiographs 06/30/2022 FINDINGS: There is 10 degrees levoscoliosis of lumbar spine. There is 3 mm retrolisthesis of L1 on L2 , L2 on L3, L3 on L4, L4 on L5, and L5 on S1. There is mild chronic anterior wedging of T11-L1 verteb ral bodies. There is mildly decreased disc height at L1-L2, moderately decreased disc height at L2-L3 , mildly decreased disc height at L3-L4, and severely decreased disc height at L4-L5 and L5-S1 with e ndplate remodeling. There is ligamentum flavum hypertrophy at the disc levels from L1-L2 through L4-L 5. Epidural lipomatosis is noted. The distal spinal cord signal intensity is normal. The conus medull padmini is at L2. The following disc levels are specifically discussed: L1-L2: The disc is bulging. There is severe right and mild left facet joint osteoarthritis. There is mild bilateral neural foraminal stenosis. There is mild central canal stenosis. L2-L3: The disc is bulging and has an annular fissure. There is severe right and moderate left facet joint osteoarthritis. There is moderate right and mild left neural foraminal stenosis. There is moder ate central canal stenosis. L3-L4: The disc is bulging and has an annular fissure. There is severe bilateral facet joint osteoart hritis. There is mild bilateral neural foraminal stenosis. There is moderate central canal stenosis. L4-L5: The disc is bulging and has an annular fissure. There is moderate right and severe left facet joint osteoarthritis. There is moderate bilateral neural foraminal stenosis. There is mild central ca nal stenosis. There is moderate stenosis of left lateral recess. L5-S1: The disc is bulging and has an annular fissure. There is severe bilateral facet joint osteoart hritis. There is severe bilateral neural foraminal stenosis. There is mild central canal stenosis. IMPRESSION: 1. Severe lumbar spondylosis. 2. Lumbar levoscoliosis. Reviewed, dictated and finalized at location A.
== END ==
PROVIDERS: PCP Physician Assistant Medical; Visit Provider Physician Assistant Medical
DX: M51.37 Other intervertebral disc degeneration, lumbosacral region (principal); R20.2 Paresthesia of skin; M19.90 Unspecified osteoarthritis, unspecified site; M47.896 Other spondylosis, lumbar region
CPT/HCPCS: 72148

== ENCOUNTER 2022-08-19 08:58 | Outpatient (CLI) | payer MEDICARE, SELFPAY ==
--- NOTE | 2022-08-19 15:00 | NEURO_ITS ---
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 MTDD
--- NOTE | 2022-08-19 15:00 | NEURO_ITS ---
IMPRESSION: Patient reports a history of numbness in both feet. # Nerve conduction study is suggestive of sensorimotor polyneuropathy with chronic neurogenic changes noted in bilateral extensor digitorum brevis, right gastrocnemius, and left tibialis anterior which likely indicates axonal involvement. . # Clinical correlation recommended. Nerve Conduction Studies Anti Sensory Summary Table Stim Site NR Peak (ms) P-T Amp (?V) Site1 Site2 Delta-P (ms) Dist (cm) Zane (m/s) Left Sup Fibular Anti Sensory (Ant Lat Mall) 14 cm 4.9 4.7 14 cm Ant Lat Mall 4.9 16.0 33 Right Sup Fibular Anti Sensory (Ant Lat Mall) 14 cm NR 14 cm Ant Lat Mall 16.0 Left Sural Anti Sensory (Lat Mall) Calf 5.8 21.4 Calf Lat Mall 5.8 16.0 28 Right Sural Anti Sensory (Lat Mall) Calf 5.6 8.5 Calf Lat Mall 5.6 16.0 29 Motor Summary Table Stim Site NR Onset (ms) O-P Amp (mV) Site1 Site2 Delta-0 (ms) Dist (cm) Zane (m/s) Left Peroneal Motor (Vastus Med) Ankle NR Popit Ankle 0.0 Popit NR Right Peroneal Motor (Vastus Med) Ankle NR Popit Ankle 0.0 Popit NR B Fib NR Left Tibial Motor (Abd Rutherford Brev) Ankle NR Knee Ankle 0.0 Knee 0.9 0.8 Right Tibial Motor (Abd Rutherford Brev) Ankle 5.9 2.0 Knee Ankle 45.0 Knee NR F Wave Studies NR F-Lat (ms) L-R F-Lat (ms) Left Peroneal (Mrkrs) (EDB) NR Right Peroneal (Mrkrs) (EDB) 61.99 Left Tibial (Mrkrs) (Abd Hallucis) NR Right Tibial (Mrkrs) (Abd Hallucis) 61.71 EMG Side Muscle Nerve Root Ins Act Fibs Amp Dur Recrt Comment Right AntTibialis Dp Br Fibular L4-5 Nml Nml Nml Nml Nml Right Gastroc Tibial S1-2 Nml Nml Nml Nml Reduced Right Fibularis Long Sup Br Fibular L5-S1 Nml Nml Nml Nml Nml Right Flex Dig Long Tibial L5-S2 Nml Nml Nml Nml Nml Right Ext Dig Brev Dp Br Fibular L5, S1 Nml Nml Incr Nml Reduced Left AntTibialis Dp Br Fibular L4-5 Nml Nml Nml Nml Reduced Left Gastroc Tibial S1-2 Nml Nml Nml Nml Nml Left Fibularis Long Sup Br Fibular L5-S1 Nml Nml Nml Nml Nml Left Flex Dig Long Tibial L5-S2 Nml Nml Nml Nml Nml Left Ext Dig Brev Dp Br Fibular L5, S1 Nml Nml Incr Nml Reduced MTDD
== END 2022-08-19 08:59 | disposition home or self-care (01) ==
LOC: ANHNEURO 08:59
PROVIDERS: PCP Physician Assistant Medical; Visit Provider Physician Assistant Medical
DX: R20.2 Paresthesia of skin (principal)
CPT/HCPCS: 95886; 95910

== ENCOUNTER 2022-09-20 11:00 | Outpatient (RCR) | payer MEDICARE, SELFPAY ==
--- NOTE | 2022-07-21 14:15 | PTOPEVAL1 ---
Assessment and note entered by Shannon Vincent DPT Evaluation Information Assessment Status Evaluation Subjective Information Pt reports LBP and numbness into his legs all the way into his toes. States that his feet are numb and painful. Has been going on for over a year and getting worse over the past few weeks. Highest pain 9/10 and lowest 5/10. Pain increases with walking longer distances (requires cart for grocery store) and navigating stairs. Cannot do reciprocal pattern on stairs. Difficulty bending over and sometimes painful. Pt is retired. Can sit for awhile, like to drive, but will be stiff after. RTMD on 07/28/22. Has had x-rays and MRI's done which showed stenosis/spondylosis. Reported Pain Level Pain Score 5: Self Report Assessment PT Clinical Summary The patient is presenting to skilled therapy with progressing LBP and radicular symptoms. He presents with decreased LE strength and flexibility, decreased core strength, and signs of neural tension which are contributing to his pain and difficulty with activities like prolonged walking and stairs. He will highly benefit from therapy to address these impairments and safely reduce pain and dysfunction. Plan of Care Interventions Electrical Stimulation,Gait Training,Hot Pack/Cold Pack,Manual Therapy,Mechanical Traction,Neuro Re- education,Patient/Caregiver Education,Therapeutic Activities,Therapeutic Exercise,Self-Care/Home Management,Ultrasound PT Services Indicated Yes Treatment Frequency and 2 times a week for 4 weeks Duration These treatments will address the objective and functional deficits as defined above. The patient will be advanced safely and appropriately in order for the patient to progress towards his/her prior level of function. Additional exercises will be introduced and as well as a comprehensive home exercise program upon discharge, if needed, ?to ensure carryover of functional gains achieved in the clinic. This treatment plan has been reviewed and agreement upon by the patient.
--- NOTE | 2022-08-18 15:42 | PTOPPROG ---
Assessment and note entered by Aimee Samuels, PT Assessment Status Progress Report Diagnosis spinal stenosis, Oth. intervertebral disc degeneration, parathesia of skin Subjective Information Pt reports feet are numb all the time. Always feels like has a pair of socks on . Pain goes into feet w/ standing too long. Still using a cart at grocery store. Still doing stairs one step at a time but feels this is more related to his knees . Cam bend but is not pain free. Reports since starting therapy doesn't hurt as bad , can walk long and a little long standing than previously. Pt reports 20% improvement overall. Nerve conduction study tomorrow. Has not been to pain management yet. Neurosurgery consult in October Pt does report feeling a lot better . Assessment PT Clinical Summary Pt has attended therapy consistently for paraesthesia, disc degeneration, and spinal stenosis. Pt reports feeling a lot better . Evaluation demo's improved ability to activate core musculature as well as increased hip and LE flexibility decreasing stress on lumbar spine. Reports he feels he is able to do more with less pain overall as well. Increased time spent discussing further referral options vs continuation of therapy which pt has decided to continue at this time as he has yet to plateau in his progress. Thus pt would benefit from continued therapy at this time. to improve strength, flexibility, and core strength. Plan of Care Interventions Electrical Stimulation,Gait Training,Hot Pack/Cold Pack,Manual Therapy,Mechanical Traction,Neuro Re- education,Patient/Caregiver Educati,Therapeutic Activities,Therapeutic Exercise,Self-Care/Home Management,Ultrasound PT Services Indicated Yes Treatment Frequency and 2x weekly x 4 weeks Duration These treatments will address the objective and functional deficits as defined above. The patient will be advanced safely and appropriately in order for the patient to progress towards his/her prior level of function. Additional exercises will be introduced and as well as a comprehensive home exercise program upon discharge, if needed, ?to ensure carryover of functional gains achieved in the clinic. This treatment plan has been reviewed and agreement upon by the patient.
--- NOTE | 2022-09-20 16:21 | PTOPPROG ---
Assessment and note entered by Aimee Samuels, PT Assessment Status Progress Diagnosis spinal stenosis, Oth. intervertebral disc degeneration, parathesia of skin Therapy diagnosis low back pain, weakness Subjective Information Pt reports feet are numb all the time. Always feels like has a pair of socks on (continued) Pain goes into feet w/ standing too long. Still using a cart at grocery store. - helps a lot versus when not using the cart Still doing stairs one step at a time but feels this is more related to his knees- cont Can bend biut is not pain free. - cont Reports since starting therapy doesn't hurt as bad , can walk long and a little long standing than previously. Pt reports 20% improvement overall. Neurosurgery consult in October Pt does report feeling a lot better . Reeeval 09/20/22: Reports is able to stand little longer. Just returned from vacation and notes pain was better. Notes was better when was on vacation , was more active like riding bike, swimming, walking around more. 30% improved overall Assessment PT Clinical Summary Pt reports he does feel he is improving, but not where he would like to be yet. Reports has noted increased ability to stand and perform activities, has shown in previous sessions centralization of symptoms. Today reports a little less pain after Traction. Traction less then full pressure due to fitting issues. Was also advised in home traction in pool setting for home traction. Pt cont to demo weakness as noted above, continued pain, and reduction of pain with traction. Thus will benefit from therapy for traction, updating of home program and continued strengthening as well as education related to issues and mobility. Plan of Care Interventions Electrical Stimulation,Hot Pack/Cold Pack,Manual Therapy,Mechanical Traction,Neuro Re-education, Patient/Caregiver Educati,Therapeutic Activities, Therapeutic Exercise,Self-Care/Home Management PT Services Indicated Yes Treatment Frequency and 2x weekly x 4 weeks Duration These treatments will address the objective and functional deficits as define
== END 2022-10-22 11:42 | disposition home or self-care (01) ==
LOC: ANHHIPT 11:00
PROVIDERS: PCP Physician Assistant Medical; Visit Provider Physician Assistant Medical
DX: M48.00 Spinal stenosis, site unspecified (principal); M51.37 Other intervertebral disc degeneration, lumbosacral region; R20.2 Paresthesia of skin
CPT/HCPCS: 97012; 97014; 97110; 97112; 97140; 97161; G0283

== ENCOUNTER 2022-10-22 11:52 | Outpatient (RCR) | payer MEDICARE, SELFPAY | END 2022-10-22 11:53 | disposition home or self-care (01) | LOC: ANHHIPT 11:52 | PROVIDERS: PCP Physician Assistant Medical; Visit Provider Physician Assistant Medical | DX: M48.00 Spinal stenosis, site unspecified (principal); M51.37 Other intervertebral disc degeneration, lumbosacral region; R20.2 Paresthesia of skin | CPT/HCPCS: 99199 ==

== ENCOUNTER 2023-05-17 01:36 | Day surgery (SDC) | payer MEDICARE, SELFPAY ==
[2023-05-04 10:41] VITALS: BMI 37.2
--- NOTE | 2023-05-04 11:09 | PC.NURSE ---
Spoke with __PATIENT____ regarding medication _PLAVIX___. Pt. verbalizes understanding that the last dose of ___PLAVIX is to be taken on __05/12/2023 and the Endoscopist will instruct them when to restart after the procedure.
--- NOTE | 2023-05-11 10:21 | PC.NURSE ---
Spoke with _Patient_ regarding medication _Plavix_. Pt. verbalizes understanding that the last dose of __Plavix_ is to be taken on _05/12/2023 and the Endoscopist will instruct them when to restart after the procedure.
--- NOTE | 2023-05-13 10:29 | SUR.PREOP ---
Patient called regarding upcoming procedure. Reviewed preop instructions, appointment times, and procedure prep.
[2023-05-17 08:33] VITALS: BP 147/85; PULSE 78; RESP 18; TEMP 36.2; O2SAT 99; BMI 37.2
[2023-05-17] MEDS: LACTATED RINGERS 1,000 ML 150 ML IV CONT (08:53)
--- NOTE | 2023-05-17 09:16 | WPDANESEPPF ---
Anes - Initial Pre Proc Eval Procedure: Operation Date: 05/17/23 10:00 Proposed Procedures p Colonoscopy - Bryce Gaming MD Date/Time: 05/17/23 09:16 Surgeon: Bryce Gaming MD Pre Op Diagnosis: hx colon polyps Patient Data Age: 67 Gender: M Height: 1.85 m Weight: 128 kg Last Vital Signs Temp 97.1 F L 05/17/23 08:33 Pulse 78 05/17/23 08:33 Resp 18 05/17/23 08:33 BP 147/85 H 05/17/23 08:33 Pulse Ox 99 05/17/23 08:33 O2 Del Method Room Air 05/17/23 08:33 Allergies Allergy/AdvReac Type Severity Reaction Status Date / Time latex Allergy Intermediate SKIN Verified 05/17/23 08:41 IRRITATION ticagrelor Allergy Intermediate Itching/YENNIFER Verified 05/17/23 08:41 H Home Medications Medication Instructions Recorded Confirmed Type coenzyme Q10 100 mg tablet 100 mg PO BID 11/20/20 05/17/23 History aspirin 81 mg tablet 81 mg PO HS 03/27/21 05/17/23 History omega-3 fatty acids 1,000 mg PO DAILY 03/27/21 05/17/23 History zinc 50 mg capsule 50 mg PO DAILY 03/27/21 05/17/23 History losartan 100 mg tablet See Rx Instructions .Route 04/21/22 05/17/23 Rx .COMPLEX #90 tabs amlodipine 2.5 mg tablet 2.5 mg PO DAILY #90 tabs 06/30/22 05/17/23 Rx cholecalciferol (vitamin D3) 125 125 mcg PO DAILY 06/30/22 05/17/23 History mcg (5,000 unit) capsule furosemide 40 mg tablet 40 mg PO DAILY #90 tabs 06/30/22 05/17/23 Rx isosorbide mononitrate 60 mg 60 mg PO QAM 06/30/22 05/17/23 History tablet,extended release 24 hr clopidogrel 75 mg tablet (Plavix) 75 mg PO DAILY 10/08/22 05/17/23 History docusate sodium 100 mg capsule 100 mg PO BID PRN constipation #60 10/08/22 05/17/23 Rx caps nitroglycerin 0.4 mg sublingual 0.4 mg sublingual Q5M PRN Chest 06/30/23 02/06/24 History tablet Pain levothyroxine 175 mcg tablet 175 mcg PO DAILY #90 tabs 12/27/22 05/17/23 Rx atorvastatin 40 mg tablet 40 mg PO HS 05/04/23 05/17/23 History Patient hx anesthesia problems: none Family hx anesthesia problems: none Results Review: All pre-operative results and documents have been reviewed as part of the pre-operative evaluation. PENDING SALE TO [facility] Past Medical History Medical History Acquired cavovarus deformity of both feet Acquired cavovarus deformity of left foot Acquired left hindfoot varus Anemia Arthritis Back pain Bilateral swelling of feet and ankles Body mass index [BMI] 29.0-29.9, adult (12/19/15) CAD (coronary artery disease) PCI to mid RCA September 2022, D2 2018 Cavus deformity of right foot Closed fracture of bone of right foot affected by diabetic neuropathy with routine healing Colon polyps Constipation DDD (degenerative disc disease), lumbosacral Displaced fracture of fifth metatarsal bone, right foot, subsequent encounter for fracture with routine healing (01/16/16) Edema of lower extremity Encounter for postoperative care Foot pain, right HTN (hypertension) Hx of myocardial infarction Hypercholesterolemia Hypothyroidism Insomnia Lack or loss of sexual desire Morbid obesity with BMI of 40.0-44.9, adult Neurogenic claudication due to lumbar spinal stenosis BRAIN on CPAP Other fracture of right foot, initial encounter for closed fracture Peroneal tendinitis of left lower leg Posterior tibial tendinitis of left lower extremity SOB (shortness of breath) Spinal stenosis Swelling Tendinitis of long head of biceps brachii of right shoulder Weight gain Surgical History Surgical History History of coronary artery stent placement September 2022 Family History Family History Father Hypertension Heart disease Cerebrovascular accident Mother Diabetes mellitus Heart disease Thyroid disorder Sibling Diabetes mellitus Hypertension Heart disease Other Family history of arthritis Social History Social History (Rev
--- NOTE | 2023-05-17 09:24 | PM.HPGS ---
History of Present Illness History of Present Illness Consent: Risks, benefits, and alternatives have been discussed and questions answered. Patient agrees to proceed with procedure. Chief complaint: colon screening Narrative: Duke Hadley is a 67 year old male here for screening colonoscopy, last one 2012 Review of Systems Constitutional: Constitutional: Denies headache(s) and Denies weakness Eyes: Eyes: Denies blurry vision ENT: Reports Normal hearing present, Denies headache(s) and Denies neck pain Cardiovascular: Cardiovascular: Denies chest pain and Denies dyspnea Respiratory: Respiratory: Denies dyspnea Gastrointestinal: Gastrointestinal: Reports no additional gastrointestinal complaints Genitourinary: Genitourinary: Denies dysuria Musculoskeletal: Musculoskeletal: Denies neck pain Integumentary/Breasts: Skin/Breast: Denies dry skin Neurologic: Reports Normal hearing present, Denies headache(s) and Denies weakness Psychiatric: Psychiatric: Denies anxiety Endocrine: Endocrine: Denies change in body appearance Hematologic/Lymphatic: Hematologic/Lymphatic: Denies easy bleeding Allergic/Immunologic: Allergic/Immunologic: Denies urticaria PMF Past Medical History Medical History (Updated 05/17/23 @ 09:24 by Bryce Gaming MD) Acquired cavovarus deformity of both feet Acquired cavovarus deformity of left foot Acquired left hindfoot varus Anemia Arthritis Back pain Bilateral swelling of feet and ankles Body mass index [BMI] 29.0-29.9, adult (12/19/15) CAD (coronary artery disease) PCI to mid RCA September 2022, D2 2018 Cavus deformity of right foot Closed fracture of bone of right foot affected by diabetic neuropathy with routine healing Colon cancer screening Colon polyps Constipation DDD (degenerative disc disease), lumbosacral Displaced fracture of fifth metatarsal bone, right foot, subsequent encounter for fracture with routine healing (01/16/16) Edema of lower extremity Encounter for postoperative care Foot pain, right HTN (hypertension) Hx of myocardial infarction Hypercholesterolemia Hypothyroidism Insomnia Lack or loss of sexual desire Morbid obesity with BMI of 40.0-44.9, adult Neurogenic claudication due to lumbar spinal stenosis BRAIN on CPAP Other fracture of right foot, initial encounter for closed fracture Peroneal tendinitis of left lower leg Posterior tibial tendinitis of left lower extremity SOB (shortness of breath) Spinal stenosis Swelling Tendinitis of long head of biceps brachii of right shoulder Weight gain Surgical History Surgical History History of coronary artery stent placement September 2022 Family History Family History Father Hypertension Heart disease Cerebrovascular accident Mother Diabetes mellitus Heart disease Thyroid disorder Sibling Diabetes mellitus Hypertension Heart disease Other Family history of arthritis Social History Social History Social History: Duke is very confident filling out medical forms. The date of his last physical exam was 07/28/22. He reports having an advance directive or living will. He reports only awaking early in the morning to urinate. He reports having difficulty getting or maintaining an erection. The date of his last PSA test was 04/19/22 with normal results. He denies having a prostate exam. Denies having flu, tetanus, and pneumonia vaccines. He had a cholesterol test 04/19/22. He had a colonoscopy 09/06/11. He denies ever having a blood transfusion. He denies currently using recreational or street drugs. He denies ever giving himself street drugs with a needle. He denies eating a healthy diet and exercising regularly. He denies being sexually active. He denies fearing for his safety or ever having a history of abuse. His caffeine intake consists of 3 cups of
[2023-05-17 09:45] VITALS: BP 103/70; PULSE 65; RESP 20; O2SAT 96
[2023-05-17 09:55] VITALS: BP 109/74; PULSE 60; RESP 20; O2SAT 99
[2023-05-17 10:05] VITALS: BP 115/71; PULSE 64; RESP 20; O2SAT 100
== END 2023-05-17 10:20 | disposition home or self-care (01) ==
PROVIDERS: PCP Physician Assistant Medical; Visit Provider Internal Medicine Gastroenterology
PROC: 0DJD8ZZ Inspection of Lower Intestinal Tract, Via Natural or Artificial Opening Endoscopic (ICD-10-PCS; CPT 45378; principal; 2023-05-17 10:00)
DX: Z12.11 Encounter for screening for malignant neoplasm of colon (principal); D12.3 Benign neoplasm of transverse colon; K63.5 Polyp of colon; K57.30 Diverticulosis of large intestine without perforation or abscess without bleeding; K64.8 Other hemorrhoids; I25.10 Atherosclerotic heart disease of native coronary artery without angina pectoris; I10 Essential (primary) hypertension; I25.2 Old myocardial infarction; E78.00 Pure hypercholesterolemia, unspecified; E03.9 Hypothyroidism, unspecified; G47.33 Obstructive sleep apnea (adult) (pediatric); E66.9 Obesity, unspecified; Z68.37 Body mass index [BMI] 37.0-37.9, adult; Z72.0 Tobacco use; Z79.82 Long term (current) use of aspirin; Z79.02 Long term (current) use of antithrombotics/antiplatelets
CPT/HCPCS: 45385; 88305; J2704; J7120